=== PATIENT | female | born 1980 | race Caucasian/White ===

== ENCOUNTER → 2017-02-06 | Outpatient (CLI) | payer OTHER ==
[2016-02-22 15:00] VITALS: BP 113/71
--- NOTE | 2017-02-07 08:48 | RAD ---
DATE: 02/06/2017 EXAM: DIGITAL SCREEN BILAT W/CAD HISTORY: Screening study. COMPARISON: 02/16/2016 This study was interpreted with the benefit of Computerized Aided Detection (CAD). FINDINGS: Digital MLO and CC mammograms of both breasts were obtained. Comparison study is dated 02/16/2016. The breast parenchyma is heterogeneously dense which can obscure a lesion on mammography (breast density code C). No spiculated mass is seen. No malignant appearing calcification or area of architectural distortion is noted. Since the previous examination there has been no significant interval change. IMPRESSION: BI-RADS Category 1, negative. There is no mammographic evidence of malignancy. Routine yearly screening mammography is recommended for follow-up. BI-RADS CATEGORY: 1 NEGATIVE RECOMMENDED FOLLOW-UP: 12M 12 MONTH FOLLOW-UP PQRS compliance statement: Patient information was entered into a reminder system with a target due date 02/06/2018 for the next mammogram. Mammography is a sensitive method for finding small breast cancers, but it does not detect them all and is not a substitute for careful clinical examination. A negative mammogram does not negate a clinically suspicious finding and should not result in delay in biopsying a clinically suspicious abnormality. "Our facility is accredited by the [employer] Mammography [employer]."
== END | disposition home or self-care (01) ==
LOC: MAMMO 10:12
PROVIDERS: ATTEND Obstetrics & Gynecology
DX: Z12.31 Encounter for screening mammogram for malignant neoplasm of breast (principal)
CPT/HCPCS: G0202; 77067

== ENCOUNTER → 2017-05-08 | Outpatient (CLI) | payer OTHER ==
[2016-02-22 15:00] VITALS: BP 113/71
--- NOTE | 2017-05-09 08:43 | RAD ---
Abdominal ultrasound, 05/08/2017: History: Right upper quadrant pain The gallbladder is within normal limits in size. There is no sonographic evidence of cholelithiasis. The gallbladder amado are not thickened. No bile duct dilatation is seen. There is no evidence of a hepatic mass. The visualized portions of the pancreas and both kidneys are unremarkable. The spleen is at the upper limits of normal in size measuring 14 cm in craniocaudad extent. The visualized portions of the aorta and inferior vena cava are unremarkable. No free fluid is evident in the abdomen. IMPRESSION: 1. Borderline splenomegaly. 2. The abdominal ultrasound is otherwise unremarkable.
== END | disposition home or self-care (01) ==
LOC: US 07:37
PROVIDERS: ATTEND Nurse Practitioner Family
DX: K21.9 Gastro-esophageal reflux disease without esophagitis (principal); R16.1 Splenomegaly, not elsewhere classified; R11.0 Nausea
CPT/HCPCS: 76700

== ENCOUNTER → 2018-06-23 | Outpatient (CLI) | payer OTHER ==
[2016-02-22 15:00] VITALS: BP 113/71
--- NOTE | 2018-06-23 10:09 | RAD ---
EXAM: Right ankle, 2 views HISTORY: Pain. Twisting injury. COMPARISON: None. FINDINGS: Frontal and lateral views of the right ankle are obtained. There is no fracture, dislocation or subluxation. There is slight inversion of the ankle, positional in etiology. There is no osteochondral lesion. IMPRESSION: No acute osseous finding. Electronically signed by: Nina Hensley MD (06/23/2018 10:06 AM) [facility]
== END | disposition home or self-care (01) ==
LOC: RAD 09:25
PROVIDERS: ATTEND Physician Assistant Medical
DX: M25.571 Pain in right ankle and joints of right foot (principal); I10 Essential (primary) hypertension; E78.1 Pure hyperglyceridemia; K21.9 Gastro-esophageal reflux disease without esophagitis; Z87.891 Personal history of nicotine dependence
CPT/HCPCS: 73600

== ENCOUNTER → 2018-12-06 | Outpatient (CLI) | payer OTHER ==
[2016-02-22 15:00] VITALS: BP 113/71
--- NOTE | 2018-12-06 11:40 | RAD ---
AP and Lateral Views of the Chest 12/06/2018 11:25 AM Indication: CHEST PAIN, HX OF HEART MURMUR Comparison: Chest radiograph February 21, 2016 Findings: There is no focal consolidation or infiltrate identified. The cardiomediastinal silhouette is within normal limits. There is no evidence of pneumothorax or pleural effusion. No acute osseous abnormalities are identified. Impression: No evidence of acute cardiopulmonary process. Electronically signed by: Wai Parra MD (12/06/2018 11:36 AM) [id number]
== END | disposition home or self-care (01) ==
LOC: RAD 11:16
PROVIDERS: ATTEND Registered Nurse
DX: R07.9 Chest pain, unspecified (principal); Z86.79 Personal history of other diseases of the circulatory system
CPT/HCPCS: 71046

== ENCOUNTER → 2019-03-27 | Outpatient (CLI) | payer OTHER ==
[2016-02-22 15:00] VITALS: BP 113/71
--- NOTE | 2019-03-27 08:12 | RAD ---
Right knee, 2 views, 03/27/2019: HISTORY: Knee pain after exercise No fracture or dislocation is identified. No significant arthritic change is seen. IMPRESSION: No significant right knee abnormality is detected. Electronically signed by: Remington Ahuja MD (03/27/2019 8:09 AM) [facility]
== END | disposition home or self-care (01) ==
LOC: RAD 07:39
PROVIDERS: ATTEND Physician Assistant Medical
DX: M25.561 Pain in right knee (principal)
CPT/HCPCS: 73560

== ENCOUNTER → 2020-04-02 | Outpatient (CLI) | payer OTHER ==
[2016-02-22 15:00] VITALS: BP 113/71
--- NOTE | 2020-04-06 18:43 | RAD ---
DATE: 04/02/2020 9:50 AM EXAM: MAMMO SUZANNE SCREENING BILATERAL HISTORY: Screening COMPARISON: 02/16/2016, 02/13/2017 and 03/14/2018 Bilateral CC and MLO views of the breasts were performed. Bilateral breast tomosynthesis was performed in CC and MLO projections. This study was interpreted with the benefit of Computerized Aided Detection (CAD). FINDINGS: Breast Density: HETERO The breast parenchyma Is heterogeneously dense, which could reduce sensitivity of mammography. Breast parenchyma level C No suspicious masses, microcalcifications or architectural distortion is present to suggest malignancy in either breast. The visualized axillae are unremarkable. IMPRESSION: No mammographic evidence of malignancy. BI-RADS CATEGORY: 1 NEGATIVE RECOMMENDED FOLLOW-UP: 12M 12 MONTH FOLLOW-UP Annual screening mammography is recommended, unless clinically indicated sooner based on symptoms or change in physical exam. PQRS compliance statement: Patient information was entered into a reminder system with a target due date 04/03/2021 for the next mammogram. Mammography is a sensitive method for finding small breast cancers, but it does not detect them all and is not a substitute for careful clinical examination. A negative mammogram does not negate a clinically suspicious finding and should not result in delay in biopsying a clinically suspicious abnormality. "Our facility is accredited by the [employer] Mammography [employer]."
== END | disposition home or self-care (01) ==
LOC: MAMMO 09:40
PROVIDERS: ATTEND Physician Assistant Medical
DX: Z12.31 Encounter for screening mammogram for malignant neoplasm of breast (principal)
CPT/HCPCS: 77063; 77067

== ENCOUNTER → 2020-04-28 | Outpatient (CLI) | payer OTHER ==
[2016-02-22 15:00] VITALS: BP 113/71
--- NOTE | 2020-04-28 16:05 | RAD ---
EXAM: Soft tissue ultrasound right shoulder. HISTORY: Palpable focus right shoulder. COMPARISON: None. FINDINGS: Sonographic evaluation of the palpable focus of concern along the right shoulder was performed. This reveals only normal subcutaneous fat an underlying osseous structures. No mass or other abnormality is identified. IMPRESSION: 1. No sonographic abnormality is appreciated at the site of palpable concern. Recommend ongoing clinical follow-up of palpable foci. Electronically signed by: Connie Iyer MD (04/28/2020 4:02 PM) [facility]
== END ==
LOC: US 13:31
PROVIDERS: ATTEND Physician Assistant Medical
DX: R22.9 Localized swelling, mass and lump, unspecified (principal)
CPT/HCPCS: 76882

== ENCOUNTER → 2021-07-19 | Outpatient (CLI) | payer OTHER ==
[2016-02-22 15:00] VITALS: BP 113/71
--- NOTE | 2021-07-19 09:26 | RAD ---
EXAM: Chest, 2 views. HISTORY: Chest wall pain. COMPARISON: 12/06/2018 FINDINGS: 2 views of the chest are obtained. There is no infiltrate, pleural effusion or pneumothorax . The heart is normal in size. IMPRESSION: No acute pulmonary finding. Electronically signed by: Nina Hensley MD (07/19/2021 9:24 AM) [facility]
== END ==
LOC: PMG 09:05
PROVIDERS: ATTEND Nurse Practitioner Family
DX: R05 Cough (principal)
CPT/HCPCS: 71046

== ENCOUNTER → 2021-07-28 | Outpatient (CLI) | payer OTHER ==
[2016-02-22 15:00] VITALS: BP 113/71
--- NOTE | 2021-07-28 18:14 | RAD ---
EXAM: XR ABDOMEN 1V 07/28/2021 12:35 PM CLINICAL INDICATION: Bloated since Monday COMPARISON: None TECHNIQUE: AP view of the abdomen FINDINGS: Bowel gas pattern is nonspecific and nonobstructive. Moderate volume of stool. No abnormal calcifications. Lung bases are clear. There is no acute osseous abnormality. IMPRESSION: Moderate volume of stool. Electronically signed by: Elsa Sanz MD (07/28/2021 6:12 PM) [id number]
== END ==
LOC: RAD 12:17
PROVIDERS: ATTEND Physician Assistant Medical
DX: R10.84 Generalized abdominal pain (principal)
CPT/HCPCS: 74018